=== PATIENT | female | born 1985 | race Caucasian/White ===

== ENCOUNTER 2021-09-21 19:30 | Inpatient (IN) ==
[2021-09-21] MEDS ORDERED: OXYTOCIN 30 UNITS/500 ML BAG IV PRN ×2 (20:25→20:28)
--- NOTE | 2021-09-21 20:36 | History & Physical Report ---
Date of Service September 21, 2021 Assessment & Plan (1) Supervision of normal intrauterine in primigravida: Plan: AROM occured during cervial balloon placement will start IV PCN G prophylaxis now will allow to ambulate after first dose of PCN G pitocin if needed for labor augmentation epidural analgesia if requested anticipate vaginal History of Present Illness Primary Care Provider: Margarita Cam MD Patient is a 36 yo white female EDC 09/16/21 who presents for IOL because of unfavorable cervix at term. otherwise uncomplicated. GBS positive, blood type O Positive. Allergies Allergy/AdvReac Type Severity Reaction Status Date / Time No Known Allergies Allergy Mild Verified 09/21/21 19:43 Home Medications Medication Instructions Recorded Confirmed Type fluticasone furoate 100 1 inh INHALATION DAILY 12/03/18 09/21/21 History mcg/actuation blister powder for inhalation (Arnuity Ellipta) prenat.vits,ben,[id number] 1 tab PO DAILY 01/29/21 09/21/21 History famotidine [Pepcid] 1 tab PO DAILY PRN 06/01/21 09/21/21 History omeprazole 20 mg capsule,delayed 20 mg PO DAILY 09/21/21 09/21/21 History release Patient History Medical History Sarcoidosis Family History (Updated 01/29/21 @ 14:23 by Sherley Mendez) Brother Sarcoidosis Mother Graves disease Social History Smoking Status: Former smoker Hx Alcohol Use: No Hx Substance Use: No Preferred Language: Syriac Communication Ability: Effective Printing Grey Cloth Tender Required: No Beliefs That Will Affect Care: None marital status: marital status details: Levar (33) [phone] Current Living Situation: Spouse Current Living Situation Comment: house with current occupational status: employed current occupation: business xm1 tank driver (identifier horse) Feels Safe at Home: Yes Safety Concerns: Feels Safe At This Time Assistive Devices: None Review of Systems All systems reviewed & are unremarkable except as noted in HPI & below Physical Exam Constitutional: WD/WN, vitals as above Respiratory: normal respiratory effort, lungs clear to auscultation Cardiovascular: RRR, no murmur, no edema Psychiatric: A+Ox3, euthymic affect Genitourinary: OB Exam Abdomen: + vertex, + estimated weight (7-8 pounds) and + regular contractions (mild every 5 -6 minutes) Manual OB Exam: + cervical dilation 1 cm, + cervical effacement 60% and + station -1 OB Exam Monitor Tracing: + external FHT monitor used, + external uterine monitor used, + category I and + normal FHT variability cervical balloon placed with stylet and in the process membranes ruptured for thin meconium stained fluid. Results & Data ([facility]) Vital Signs (Past 12 Hours) Vital Signs Temp Pulse Resp BP 09/21/21 20:26 97.9 F 09/21/21 19:46 97.9 F 18 09/21/21 19:40 97.9 F 73 18 123/73 Coding Level of Care Code None Diagnoses Supervision of normal intrauterine in primigravida Z34.00
[2021-09-21] MEDS ORDERED: PENICILLIN G POTASSIUM 6 MU in DEXTROSE 5% 250 ML IV ONE (20:45)
[2021-09-21 20:54] LABS: Hematocrit (blood only) 30.1 % (37-47); Hemoglobin 10.2 g/dL (12.0-16.0); Mean Corpuscular Hemoglobin 27.6 pg (25-34); Mean Corpuscular Hgb Conc 33.9 g/dL (32-36); Mean Corpuscular Volume 81.6 fL (80-100); Mean Platelet Volume 10.2 fL (7.4-10.4); Platelet Count 252 K/uL (130-400); RDW Coefficient of Variation 12.4 % (11.5-14.5); RDW Standard Deviation 36.9 fL (36.4-46.3); Red Blood Count 3.69 M/uL (4.2-5.4); White Blood Count 10.85 K/uL (4.8-10.8)
[2021-09-21] MEDS: LACTATED RINGER'S 1,000 ML IV PRN (20:56)
[2021-09-22] MEDS: PENICILLIN G POTASSIUM 3 MU in DEXTROSE 5% 100 ML IV PRN ×3 (00:41→08:58)
[2021-09-22] MEDS ORDERED: ePHEDrine sulfate 50 MG/ML AMP ONE (01:25)
[2021-09-22] MEDS ORDERED: BUPIVACAINE 0.25% 30 ML VIAL ONE (01:26)
[2021-09-22] MEDS ORDERED: fentaNYL 2MCG/ML ROPIVACAINE 1.25MG/ML 100 ML BAG EPI ONE (01:26)
[2021-09-22] MEDS ORDERED: SODIUM CHLORIDE 0.9% INJ 10 ML VIAL ONE (01:26)
[2021-09-22] MEDS ORDERED: fentaNYL citrate 100 MCG/2 ML VIAL ONE ×2 (01:26→11:41)
[2021-09-22] MEDS ORDERED: ONDANSETRON INJ 2 MG/ML 2 ML VIAL IV PRN (01:48)
[2021-09-22] MEDS ORDERED: NALOXONE HCL 1 MG in SODIUM CHLORIDE 0.9% 1000ML 1,000 ML IV PRN ×2 (01:48→11:12)
[2021-09-22] MEDS ORDERED: NALBUPHINE HCL INJ 10 MG/ML AMP IV PRN ×2 (01:48→11:12)
[2021-09-22] MEDS ORDERED: NALOXONE HCL 0.4 MG/1 ML VIAL/CARP IV PRN ×2 (01:48→11:12)
[2021-09-22] MEDS ORDERED: ePHEDrine sulfate 50 MG/ML AMP IV PRN ×2 (01:48→11:12)
[2021-09-22] MEDS ORDERED: diphenhydrAMINE 50 MG/ML VIAL IV PRN ×2 (01:48→11:12)
[2021-09-22] MEDS ORDERED: fentaNYL 2MCG/ML ROPIVACAINE 1.25MG/ML 100 ML BAG EPI PRN (01:48)
--- NOTE | 2021-09-22 01:49 | Anesthesiology Consultation ---
Date of Service September 22, 2021 Assessment & Plan (1) Encounter for pre-operative examination: Chart Review Chart Review: Patient NOT seen in Pre Admission Testing and Acceptable Risk for Labor Epidural Consults Requested none History Height/Weight Height: 5 ft 1 in Weight: 70.307 kg Allergies Allergy/AdvReac Type Severity Reaction Status Date / Time No Known Allergies Allergy Mild Verified 09/21/21 19:43 Medications Home Medications Medication Instructions Recorded Confirmed Last Taken fluticasone furoate 100 1 inh INHALATION DAILY 12/03/18 09/21/21 12/03/18 08:00 mcg/actuation blister powder for inhalation (Arnuity Ellipta) prenat.vits,ben,[id number] 1 tab PO DAILY 01/29/21 09/21/21 09/20/21 famotidine 20 mg tablet (Pepcid) 20 mg PO DAILY 09/21/21 09/21/21 Unknown omeprazole 20 mg capsule,delayed 20 mg PO DAILY 09/21/21 09/21/21 09/21/21 release Active Medications Generic Name Dose Route Start Last Admin Trade Name Freq PRN Reason Stop Dose Admin Lactated Ringer's 1,000 mls @ 125 mls/hr 09/21/21 20:25 09/22/21 01:20 Lr IV 09/23/21 20:24 999 mls/hr .Q8H PRN Infusion L&D Protocol Protocol Penicillin G Potassium 3 mu/ 106 mls @ 100 mls/hr 09/22/21 00:30 09/22/21 01:45 Dextrose IV 10/02/21 00:29 Infused Q4H PRN Infusion GBS(+) Until Delivery Past Medical History Medical History Sarcoidosis Exercise / Class Metabolic Activity II 4-5 Yardwork/Stairs/Walk up hill Past Family History Family History Brother Sarcoidosis Mother Graves disease Past Anesthesia History No Hx of Anesthesia Complications and No Family Hx of Anesthesia Complications History of PONV No Hx of PONV and No Hx of Motion Sickness Social History Smoking Status: Former smoker tobacco type: cigarettes Hx Alcohol Use: No Hx Substance Use: No Physical Exam Vital Signs Last Vital Signs Temp 36.6 C 09/22/21 01:46 Pulse 76 09/22/21 01:46 Resp 18 09/21/21 23:45 BP 118/71 09/22/21 01:46 Pulse Ox 99 09/22/21 01:46 Testing Laboratory Results 09/21/21 20:34
[2021-09-22] MEDS: LACTATED RINGER'S 1,000 ML IV PRN (02:21)
--- NOTE | 2021-09-22 08:41 | Labor Progress Brief Note ---
Date of Service September 22, 2021 Patient is to be induced today during her cervical Bates placement she had an artificial rupture membranes at that time she was admitted contractions began requested epidural and Pitocin was started in the morning she did start to have some repetitive late decelerations she was repositioned a fluid bolus was given Pitocin was stopped and oxygen given to the patient this stage we will monitor the patient is 3 cm however her station is high -3 discussed if we take a pause from Pitocin to restart and will see if the decelerations reappear we discussed the possibility of Assessment & Plan Admission and Anticipated Discharge Date Admission Date: September 21, 2021 Results & Data ([facility]) Vital Signs (Past 12 Hours) Vital Signs Temp Pulse Resp BP Pulse Ox 09/22/21 08:36 70 100 09/22/21 08:31 66 96 09/22/21 08:27 58 L 106/65 09/22/21 08:26 59 L 98 09/22/21 08:21 70 98 09/22/21 08:16 76 98 09/22/21 08:12 63 111/69 09/22/21 08:11 70 98 09/22/21 08:06 67 98 09/22/21 08:01 71 97 09/22/21 07:57 75 113/69 09/22/21 07:56 71 98 09/22/21 07:51 68 98 09/22/21 07:46 79 96 09/22/21 07:42 64 110/65 09/22/21 07:41 77 97 09/22/21 07:36 64 96 09/22/21 07:31 66 96 09/22/21 07:27 62 106/63 09/22/21 07:26 60 96 09/22/21 07:21 74 96 09/22/21 07:16 70 96 09/22/21 07:12 98.4 F 65 20 102/56 L 09/22/21 07:11 76 97 09/22/21 07:06 65 95 09/22/21 07:01 68 96 09/22/21 07:00 18 09/22/21 06:57 63 108/61 09/22/21 06:56 64 96 09/22/21 06:51 66 95 09/22/21 06:46 64 96 09/22/21 06:42 64 101/58 L 09/22/21 06:41 66 95 09/22/21 06:36 97.9 F 82 95 09/22/21 06:31 62 96 09/22/21 06:30 18 09/22/21 06:27 65 111/63 09/22/21 06:26 66 96 09/22/21 06:21 70 96 09/22/21 06:16 62 96 09/22/21 06:12 65 114/63 09/22/21 06:11 65 95 09/22/21 06:06 70 95 09/22/21 06:01 68 96 09/22/21 06:00 18 09/22/21 05:57 69 111/65 09/22/21 05:56 65 95 09/22/21 05:51 66 96 09/22/21 05:46 67 96 09/22/21 05:42 66 108/66 09/22/21 05:41 63 96 09/22/21 05:36 67 96 09/22/21 05:31 66 96 09/22/21 05:28 65 106/63 09/22/21 05:26 71 96 09/22/21 05:21 62 96 09/22/21 05:16 68 97 09/22/21 05:12 83 111/70 09/22/21 05:11 64 96 09/22/21 05:06 65 96 09/22/21 05:01 65 96 09/22/21 04:57 65 107/63 09/22/21 04:56 68 96 09/22/21 04:55 98.1 F 09/22/21 04:51 70 97 09/22/21 04:46 66 97 09/22/21 04:42 67 93/52 L 09/22/21 04:41 78 98 09/22/21 04:36 74 97 09/22/21 04:31 72 96 09/22/21 04:30 18 09/22/21 04:27 75 106/56 L 09/22/21 04:26 78 96 09/22/21 04:21 77 96 09/22/21 04:16 67 97 09/22/21 04:12 64 99/54 L 09/22/21 04:11 67 97 09/22/21 04:06 67 97 09/22/21 04:01 70 97 09/22/21 04:00 18 09/22/21 03:58 65 109/63 09/22/21 03:56 66 96 09/22/21 03:51 65 96 09/22/21 03:46 62 96 09/22/21 03:43 88 114/62 09/22/21 03:42 72 94 09/22/21 03:41 67 94 09/22/21 03:36 64 96 09/22/21 03:31 62 96 09/22/21 03:27 63 116/65 09/22/21 03:26 64 96 09/22/21 03:21 82 96 09/22/21 03:16 71 96 09/22/21 03:15 97.7 F 09/22/21 03:14 67 108/63 09/22/21 03:11 67 96 09/22/21 03:06 68 96 09/22/21 03:01 71 96 09/22/21 03:00 18 09/22/21 02:59 70 107/64 09/22/21 02:56 82 97 09/22/21 02:51 73 96 09/22/21 02:46 85 96 09/22/21 02:42 69 92/55 L 09/22/21 02:41 69 97 09/22/21 02:36 74 97 09/22/21 02:31 69 97 09/22/21 02:30 18 09/22/21 02:27 93 H 110/57 L 09/22/21 02:26 85 97 09/22/21 02:25 83 100/58 L 09/22/21 02:23 81 105/59 L 09/22/21 02:21 82 103/59 L 98 09/22/21 02:19 93 H 109/63 09/22/21 02:17 88 106/59 L 09/22/21 02:16 94 H 98 09/22/21 02:15 87 95/54 L 09/22/21 02:13 74 100/55 L 09/22/21 02:11 76 110/70 98 09/22/21 02:09 75 116/60 09/22/21 02:07 76 120/61 09/22/21 02:06 88 98 09/22/21 02:01 86 98 09/22/21 01:56 95 H 98 09/22/21 01:51 80 98 09/22/21 01:46 97.9 F 76 118/71 99 09/22/21 01:41 81 100 09/21/21 23:45 98.1 F 18 09/21/21 23:00 65 123/77 09/21/21 22:00 97.5 F L 18 09/21/21 21:30 18 09/21/21 21:00 18 Coding Level of Care Code None
[2021-09-22] MEDS ORDERED: PANTOprazole 40 MG TAB PO SCH (09:00)
[2021-09-22] MEDS ORDERED: FLUTICASONE FUROATE 100MCG 14 PUFFS/INHALER INH SCH (09:00)
--- NOTE | 2021-09-22 10:02 | Labor Progress Brief Note ---
Date of Service September 22, 2021 We have turned Pitocin off 2 times now due to recurrent late decelerations resuscitative measures have been initiated including oxygen and repositioning and fluid bolus and patient is still 3 cm -3 station I have discussed all my concerns about the lack of progress and still was reassuring status when contractions are more active. Some of the D cells are certainly timed with her fiona after the peak of the contraction and have a subtle waveform consistent with late decelerations the heart rate in the pill in between is reassuring and shows good variability I have discussed the possibility of restarting the Pitocin and also discussed the option of a section we discussed the risks involved of the section as well section. The patient was counseled to the nature of the procedure including alternatives such as labor. Risks were discussed including bleeding infection injury to bowel bladder ureter vessels and even baby. Deep Vein thrombosis, pulmonary embolus discussed. Breakdown of incision reviewed. Deep vein thrombosis pulmonary embolus hernia and failure of the incision to heal were discussed Patient verbalized understanding of this and was given ample time to ask questions Assessment & Plan Admission and Anticipated Discharge Date Admission Date: September 21, 2021 Results & Data ([facility]) Vital Signs (Past 12 Hours) Vital Signs Temp Pulse Resp BP Pulse Ox 09/22/21 09:58 93 H 135/74 09/22/21 09:56 96 H 97 09/22/21 09:51 76 98 09/22/21 09:46 73 97 09/22/21 09:42 67 114/72 09/22/21 09:41 69 98 09/22/21 09:36 67 99 09/22/21 09:31 69 99 09/22/21 09:27 67 122/73 09/22/21 09:26 71 99 09/22/21 09:21 62 98 09/22/21 09:16 64 99 09/22/21 09:13 65 128/72 09/22/21 09:11 69 98 09/22/21 09:06 73 98 09/22/21 09:01 67 100 09/22/21 08:57 62 117/66 09/22/21 08:56 64 100 09/22/21 08:51 66 100 09/22/21 08:46 66 100 09/22/21 08:43 64 115/73 09/22/21 08:41 69 100 09/22/21 08:36 70 100 03/23/22 08:31 66 96 09/22/21 08:27 58 L 106/65 09/22/21 08:26 59 L 98 09/22/21 08:21 70 98 09/22/21 08:16 76 98 09/22/21 08:12 63 111/69 09/22/21 08:11 70 98 09/22/21 08:06 67 98 09/22/21 08:01 71 97 09/22/21 07:57 75 113/69 09/22/21 07:56 71 98 09/22/21 07:51 68 98 09/22/21 07:46 79 96 09/22/21 07:42 64 110/65 09/22/21 07:41 77 97 09/22/21 07:36 64 96 09/22/21 07:31 66 96 09/22/21 07:27 62 106/63 09/22/21 07:26 60 96 09/22/21 07:21 74 96 09/22/21 07:16 70 96 09/22/21 07:12 98.4 F 65 20 102/56 L 09/22/21 07:11 76 97 09/22/21 07:06 65 95 09/22/21 07:01 68 96 09/22/21 07:00 18 09/22/21 06:57 63 108/61 09/22/21 06:56 64 96 09/22/21 06:51 66 95 09/22/21 06:46 64 96 09/22/21 06:42 64 101/58 L 09/22/21 06:41 66 95 09/22/21 06:36 97.9 F 82 95 09/22/21 06:31 62 96 09/22/21 06:30 18 09/22/21 06:27 65 111/63 09/22/21 06:26 66 96 09/22/21 06:21 70 96 09/22/21 06:16 62 96 09/22/21 06:12 65 114/63 09/22/21 06:11 65 95 09/22/21 06:06 70 95 09/22/21 06:01 68 96 09/22/21 06:00 18 09/22/21 05:57 69 111/65 09/22/21 05:56 65 95 09/22/21 05:51 66 96 09/22/21 05:46 67 96 09/22/21 05:42 66 108/66 09/22/21 05:41 63 96 09/22/21 05:36 67 96 09/22/21 05:31 66 96 09/22/21 05:28 65 106/63 09/22/21 05:26 71 96 09/22/21 05:21 62 96 09/22/21 05:16 68 97 09/22/21 05:12 83 111/70 09/22/21 05:11 64 96 09/22/21 05:06 65 96 09/22/21 05:01 65 96 09/22/21 04:57 65 107/63 09/22/21 04:56 68 96 09/22/21 04:55 98.1 F 09/22/21 04:51 70 97 09/22/21 04:46 66 97 09/22/21 04:42 67 93/52 L 09/22/21 04:41 78 98 09/22/21 04:36 74 97 09/22/21 04:31 72 96 09/22/21 04:30 18 09/22/21 04:27 75 106/56 L 09/22/21 04:26 78 96 09/22/21 04:21 77 96 09/22/21 04:16 67 97 09/22/21 04:12 64 99/54 L 09/22/21 04:11 67 97 09/22/21 04:06 67 97 09/22/21 04:01 70 97 09/22/21 04:00 18 09/22/21 03:58 65 109/63 09/22/21 03:56 66 96 09/22/21 03:51 65 96 09/22/21 03:46 62 96 09/22/21 03:43 88 114/62 09/22/21 03:42 72 94 09/22/21 03:41 67 94 09/22/21 03:36 64 96 09/22/21 03:31 62 96 09/22/21 03:27 63 116/65 09/22/21 03:26 64 96 09/22/21 03:21 82 96 09/22/21 03:16 71 96 09/22/21 03:15 97.7 F 09/22/21 03:14 67 108/63 09/22/21 03:11 67 96 09/22/21 03:06 68 96 09/22/21 03:01 71 96 09/22/21 03:00 18 09/22/21 02:59 70 107/64 09/22/21 02:56 82 97 09/22/21 02:51 73 96 09/22/21 02:46 85 96 09/22/21 02:42 69 92/55 L 09/22/21 02:41 69 97 09/22/21 02:36 74 97 09/22/21 02:31 69 97 09/22/21 02:30 18 09/22/21 02:27 93 H 110/57 L 09/22/21 02:26 85 97 09/22/21 02:25 83 100/58 L 09/22/21 02:23 81 105/59 L 09/22/21 02:21 82 103/59 L 98 09/22/21 02:19 93 H 109/63 09/22/21 02:17 88 106/59 L 09/22/21 02:16 94 H 98 09/22/21 02:15 87 95/54 L 09/22/21 02:13 74 100/55 L 09/22/21 02:11 76 110/70 98 09/22/21 02:09 75 116/60 09/22/21 02:07 76 120/61 09/22/21 02:06 88 98 09/22/21 02:01 86 98 09/22/21 01:56 95 H 98 09/22/21 01:51 80 98 09/22/21 01:46 97.9 F 76 118/71 99 09/22/21 01:41 81 100 09/21/21 23:45 98.1 F 18 09/21/21 23:00 65 123/77 Coding Level of Care Code None
[2021-09-22] MEDS ORDERED: LACTATED RINGER'S 1,000 ML IV SCH ×2 (10:45→13:35)
[2021-09-22] MEDS ORDERED: ceFAZolin 2000MG 2,000 MG/15 ML SYR IV SCH (11:00)
[2021-09-22] MEDS ORDERED: CITRIC ACID/SODIUM CITRATE 15 ML UDC PO SCH (11:00)
[2021-09-22] MEDS ORDERED: LACTATED RINGER'S 500 ML IV PRN (11:12)
[2021-09-22] MEDS ORDERED: MoRPHine SULFATE PF 1 MG/ML 10 ML AMP/VIAL EPI ONE (11:12)
[2021-09-22] MEDS ORDERED: KETOROLAC 30 MG/ML VIAL IV PRN (11:12)
[2021-09-22] MEDS ORDERED: HYDROmorphone INJ 0.5 MG/0.5 ML SYR IV PRN (11:12)
[2021-09-22] MEDS ORDERED: NALOXONE HCL 0.08 MG in SYRINGE 1.8 ML IV PRN (11:12)
[2021-09-22] MEDS ORDERED: SODIUM CHLORIDE 0.9% 1000ML 1,000 ML IV SCH (11:15)
[2021-09-22] MEDS ORDERED: NO NARCOTICS OR SEDATIVES SCH (11:15)
[2021-09-22] MEDS ORDERED: DC INTRASPINAL MORPHINE SCH (11:15)
[2021-09-22] MEDS ORDERED: MoRPHine SULFATE PF 1 MG/ML 10 ML AMP/VIAL ONE (11:41)
[2021-09-22] MEDS ORDERED: LIDOCAINE 2%/EPINEPHRINE 1:200,000 20 ML SDV ONE (11:42)
[2021-09-22] MEDS ORDERED: OXYTOCIN 10 UNITS/ML 10ML VIAL ONE ×2 (12:15→12:17)
[2021-09-22] MEDS ORDERED: PHENYLEPHRINE 100MCG/ML 5ML SYR ONE (12:15)
[2021-09-22] MEDS ORDERED: ONDANSETRON INJ 2 MG/ML 2 ML VIAL ONE (12:15)
--- NOTE | 2021-09-22 12:50 | Operative Report ---
PG Post Operative Report Pre & Post Diagnosis Operation Date: 09/22/21 12:00 <No data on this case meets the specified criteria> I identified the patient and participated in the time-out.: Yes Procedure Operation Date: 09/22/21 12:00 <No data on this case meets the specified criteria> Surgeon Cintia Amaro MD, FACOG [employer] Saw Tender . Estimated Blood Loss 500 Findings Consistent with Post-Op Diagnosis Specimens Cord gases cord blood Description of Procedure Regional anesthetic had been given by anesthesia patient was prepped and draped with a leftward tilt preoperative antibiotics had been given in appropriate timing by anesthesiology. Once the prep was allowed to fully dry timeout was performed. Pickups with teeth were used to test the incision area was found to be adequate for incision as the patient did not feel sharp pain. Scalpel was used to make a Pfannenstiel incision on the lower abdomen. We then cut through the subcutaneous fat down to the level of the anterior rectus sheath fascia this was cut in the midline and then extended laterally with the curved Felton scissors. At this stage we then placed 2 Osmin clamps on the anterior aspect of the fascia. Using the curved Felton's we are able to dissect the fascia superiorly away from the rectus muscles. Care was taken to maintain hemostasis. Osmin clamps were then placed to the inferior aspect of the anterior sheath of the fascia. Fascia was then dissected away from the rectus muscles inferiorly towards the pubic bone. A Osmin was then placed in the midline both inferiorly and superiorly. This was to allow exposure by retraction rectus muscles were in the midline with were then able to cut through the peritoneum and then enter the peritoneal cavity. Opening was enlarged to allow exposure of the peritoneal cavity both superiorly and inferiorly. Once adequate space was obtained a bladder retractor was placed to expose the lower segment Metzenbaums were used to dissect the bl adder flap inferiorly away from the uterus. This was done sharply bladder retractor was then repositioned to expose the lower segment of the uterus Fresh scalpel was used to make a low transverse incision on the uterus. Uterus was then entered bluntly with the operators finger, membranes ruptured and the opening was enlarged using the operators fingers bluntly pulling superiorly and inferiorly to allow exposure. Baby was delivered by first flexion of the head elevation of the head out of the pelvis and then pressure by the radiology assistant on the maternal abdomen. Baby's head was then delivered mouth and then nares were suctioned and then using gentle traction the baby was fully delivered. Live vigorous . Fluid was clear cord clamped and cut cord gases obtained cord blood obtained baby handed to pediatrics. Placenta removed was removed with traction we ensure the entire placenta was removed with a moist lap sponge, note tight nuchal cord that had to be clamped to deliver the head and there was thin meconium the was a male infant Infant's head was floating high in the pelvis and was nowhere near engaged at the time of Uterus was then exteriorized. IV Pitocin had been started by anesthesia tone improved there were no extensions the uterus was then closed using 0 Monocryl in a 2 layer closure the first layer closed in a running locked fashion from left to right and then a second closure from left to right in a running nonlocked fashion. At this stage hemostasis was excellent. Uterus was placed back in the peritoneal cavity with suction irrigation out and inspection of the uterus at this stage revealed excellent hemostasis Retractors were removed urine color was clear at this stage of the case we inspected the rectus muscles they were hemostatic fascia was closed with 0 Vicryl subcutaneous fat was irrigated and closed with 3-0 Vicryl skin closed with 4-0 subcuticular Monocryl I attest to the content of the Intraoperative Record and any orders documented therein. Any exceptions are noted below. OB Procedure Charges 03413
[2021-09-22] MEDS ORDERED: HYDROCORTISONE ACETATE 25 MG SUPP PR PRN (13:35)
[2021-09-22] MEDS ORDERED: MAGNESIUM HYDROXIDE SUSP 30 ML UDC PO PRN (13:35)
[2021-09-22] MEDS ORDERED: BENZOCAINE 20% AER SPR 82.5 GM CAN EXT PRN (13:35)
[2021-09-22] MEDS ORDERED: DIPHTHERIA/TETANUS/PERTUSSIS 0.5 ML SYR/VIAL IM ONE (13:35)
[2021-09-22] MEDS ORDERED: SENNA 8.6 MG TAB PO PRN (13:35)
--- NOTE | 2021-09-22 14:43 | Anesthesiology Progress Note ---
Date of Service September 22, 2021 Anesthesia Post Procedure Vital Signs Vital Signs: Temp Pulse Resp BP Pulse Ox 09/22/21 14:38 74 98 09/22/21 14:36 90 120/69 09/22/21 14:33 100 H 98 09/22/21 14:28 83 97 09/22/21 14:26 93 H 123/68 09/22/21 14:25 20 09/22/21 14:23 105 H 98 09/22/21 14:18 84 94 09/22/21 14:17 82 125/67 09/22/21 14:13 103 H 96 09/22/21 14:08 91 H 98 09/22/21 14:06 87 119/67 09/22/21 14:03 84 97 09/22/21 13:58 82 98 09/22/21 13:56 103 H 135/72 09/22/21 13:55 20 09/22/21 13:53 90 98 09/22/21 13:48 87 97 09/22/21 13:46 104 H 137/72 09/22/21 13:43 90 96 09/22/21 13:38 88 97 09/22/21 13:35 20 09/22/21 13:33 95 H 97 09/22/21 13:28 111 H 96 09/22/21 13:26 106 H 124/78 09/22/21 13:25 20 09/22/21 13:23 98 H 96 09/22/21 13:18 88 97 09/22/21 13:16 100 H 118/74 92 09/22/21 13:15 20 09/22/21 13:13 78 97 09/22/21 13:08 75 96 09/22/21 13:06 77 107/57 L 09/22/21 13:05 20 09/22/21 13:03 77 97 09/22/21 12:58 77 97 09/22/21 12:55 93 H 108/58 L 09/22/21 12:53 96 H 95 09/22/21 11:55 36.6 C 20 09/22/21 11:47 77 98 09/22/21 11:42 75 98 09/22/21 11:37 79 97 09/22/21 11:32 69 97 09/22/21 11:27 68 98 09/22/21 11:22 67 97 09/22/21 11:16 66 98 09/22/21 11:12 63 118/69 09/22/21 11:11 65 98 09/22/21 11:06 69 98 09/22/21 11:01 67 98 09/22/21 10:57 63 109/67 09/22/21 10:56 71 98 09/22/21 10:51 85 98 09/22/21 10:46 65 98 09/22/21 10:42 73 108/64 09/22/21 10:41 93 H 98 09/22/21 10:36 78 97 09/22/21 10:31 71 96 09/22/21 10:27 67 111/70 09/22/21 10:26 78 98 09/22/21 10:21 95 H 96 09/22/21 10:16 74 97 09/22/21 10:13 69 115/74 09/22/21 10:11 69 97 09/22/21 10:06 69 97 09/22/21 10:01 72 98 09/22/21 09:58 93 H 135/74 09/22/21 09:56 96 H 97 09/22/21 09:51 76 98 09/22/21 09:46 73 97 09/22/21 09:42 67 114/72 09/22/21 09:41 69 98 09/22/21 09:36 67 99 09/22/21 09:31 69 99 09/22/21 09:27 67 122/73 09/22/21 09:26 71 99 09/22/21 09:21 62 98 09/22/21 09:16 64 99 09/22/21 09:13 65 128/72 09/22/21 09:11 69 98 09/22/21 09:06 73 98 09/22/21 09:01 67 100 09/22/21 08:57 62 117/66 09/22/21 08:56 64 100 09/22/21 08:51 66 100 09/22/21 08:46 66 100 09/22/21 08:43 64 115/73 09/22/21 08:41 69 100 09/22/21 08:36 70 100 09/22/21 08:31 66 96 09/22/21 08:27 58 L 106/65 09/22/21 08:26 59 L 98 09/22/21 08:21 70 98 09/22/21 08:16 76 98 09/22/21 08:12 63 111/69 09/22/21 08:11 70 98 09/22/21 08:06 67 98 09/22/21 08:01 71 97 09/22/21 07:57 75 113/69 09/22/21 07:56 71 98 09/22/21 07:51 68 98 09/22/21 07:46 79 96 09/22/21 07:42 64 110/65 09/22/21 07:41 77 97 09/22/21 07:36 64 96 09/22/21 07:31 66 96 09/22/21 07:27 62 106/63 09/22/21 07:26 60 96 09/22/21 07:21 74 96 09/22/21 07:16 70 96 09/22/21 07:12 36.9 C 65 20 102/56 L 09/22/21 07:11 76 97 09/22/21 07:06 65 95 09/22/21 07:01 68 96 09/22/21 07:00 18 09/22/21 06:57 63 108/61 09/22/21 06:56 64 96 09/22/21 06:51 66 95 09/22/21 06:46 64 96 09/22/21 06:42 64 101/58 L 09/22/21 06:41 66 95 09/22/21 06:36 36.6 C 82 95 09/22/21 06:31 62 96 09/22/21 06:30 18 09/22/21 06:27 65 111/63 09/22/21 06:26 66 96 09/22/21 06:21 70 96 09/22/21 06:16 62 96 09/22/21 06:12 65 114/63 09/22/21 06:11 65 95 09/22/21 06:06 70 95 09/22/21 06:01 68 96 09/22/21 06:00 18 09/22/21 05:57 69 111/65 09/22/21 05:56 65 95 09/22/21 05:51 66 96 09/22/21 05:46 67 96 09/22/21 05:42 66 108/66 09/22/21 05:41 63 96 09/22/21 05:36 67 96 09/22/21 05:31 66 96 09/22/21 05:28 65 106/63 09/22/21 05:26 71 96 09/22/21 05:21 62 96 09/22/21 05:16 68 97 09/22/21 05:12 83 111/70 09/22/21 05:11 64 96 09/22/21 05:06 65 96 09/22/21 05:01 65 96 09/22/21 04:57 65 107/63 09/22/21 04:56 68 96 09/22/21 04:55 36.7 C 09/22/21 04:51 70 97 09/22/21 04:46 66 97 09/22/21 04:42 67 93/52 L 09/22/21 04:41 78 98 09/22/21 04:36 74 97 09/22/21 04:31 72 96 09/22/21 04:30 18 09/22/21 04:27 75 106/56 L 09/22/21 04:26 78 96 09/22/21 04:21 77 96 09/22/21 04:16 67 97 09/22/21 04:12 64 99/54 L 09/22/21 04:11 67 97 09/22/21 04:06 67 97 09/22/21 04:01 70 97 09/22/21 04:00 18 09/22/21 03:58 65 109/63 09/22/21 03:56 66 96 09/22/21 03:51 65 96 09/22/21 03:46 62 96 09/22/21 03:43 88 114/62 09/22/21 03:42 72 94 09/22/21 03:41 67 94 09/22/21 03:36 64 96 09/22/21 03:31 62 96 09/22/21 03:27 63 116/65 09/22/21 03:26 64 96 09/22/21 03:21 82 96 09/22/21 03:16 71 96 09/22/21 03:15 36.5 C 09/22/21 03:14 67 108/63 09/22/21 03:11 67 96 09/22/21 03:06 68 96 09/22/21 03:01 71 96 09/22/21 03:00 18 09/22/21 02:59 70 107/64 09/22/21 02:56 82 97 09/22/21 02:51 73 96 09/22/21 02:46 85 96 09/22/21 02:42 69 92/55 L 09/22/21 02:41 69 97 09/22/21 02:36 74 97 09/22/21 02:31 69 97 09/22/21 02:30 18 09/22/21 02:27 93 H 110/57 L 09/22/21 02:26 85 97 09/22/21 02:25 83 100/58 L 09/22/21 02:23 81 105/59 L 09/22/21 02:21 82 103/59 L 98 09/22/21 02:19 93 H 109/63 09/22/21 02:17 88 106/59 L 09/22/21 02:16 94 H 98 09/22/21 02:15 87 95/54 L 09/22/21 02:13 74 100/55 L 09/22/21 02:11 76 110/70 98 09/22/21 02:09 75 116/60 09/22/21 02:07 76 120/61 09/22/21 02:06 88 98 09/22/21 02:01 86 98 09/22/21 01:56 95 H 98 09/22/21 01:51 80 98 09/22/21 01:46 36.6 C 76 118/71 99 09/22/21 01:41 81 100 09/21/21 23:45 36.7 C 18 09/21/21 23:00 65 123/77 09/21/21 22:00 36.4 C L 18 09/21/21 21:30 18 09/21/21 21:00 18 09/21/21 20:30 18 09/21/21 20:26 36.6 C 09/21/21 19:46 36.6 C 18 09/21/21 19:40 36.6 C 73 18 123/73 Pain Intensity Lower Abdomen: Pain Intensity: 3 Transfer of Care Handoff Completed per policy Notes Mental Status: alert / awake / arousable Patient Amnestic to Procedure: Yes Nausea / Vomiting: adequately controlled Pain: adequately controlled Airway Patency, RR, SpO2: stable & adequate BP & HR: stable & adequate Hydration State: stable & adequate Neuraxial Anesthesia: was administered and sensory block is resolving Anesthetic Complications: no major complications apparent and Pt Satisfied with anesthetic care
[2021-09-22 15:33] LABS: Base Excess Cord Arterial Bld -2.7 mEq/L (-9-1.8); CO2 Cord Arterial Blood 56 mmHg (39.1-73.5); HCO3 Cord Arterial Blood 26 mmol/L (19.7-28.5); PO2 Cord Arterial Blood 14 mmHg (4.1-31.7); pH Cord Arterial Blood 7.28 (7.1-7.38)
[2021-09-22 15:36] LABS: Oxygen Sat Cord Arterial Blood < 60.0 % (<60)
[2021-09-22 15:37] LABS: Base Excess Cord Venous Blood -2.6 mEq/L (-7.7-1.9); Cord Venous Blood HCO3 24 mmol/L (18.4-26.8); Cord Venous Blood PCO2 45 mmHg (30.4-57.2); Cord Venous Blood PO2 25 mmHg (14.1-43.3); Cord Venous Blood pH 7.33 (7.20-7.44); O2 Saturation Cord Venous Bld < 60.0 % (<68)
[2021-09-22] MEDS: SIMETHICONE 80 MG CHEW PO SCH (17:24)
[2021-09-22] MEDS: OXYTOCIN 20 UNITS in LACTATED RINGER'S 1,000 ML IV SCH (17:40)
[2021-09-23] MEDS: OXYTOCIN 20 UNITS in LACTATED RINGER'S 1,000 ML IV SCH (02:14)
[2021-09-23] MEDS ORDERED: MEPERIDINE HCL 50 MG/ML CARP IV PRN (05:12)
[2021-09-23] MEDS ORDERED: ONDANSETRON INJ 2 MG/ML 2 ML VIAL IV PRN (05:12)
[2021-09-23] MEDS ORDERED: KETOROLAC 30 MG/ML VIAL IV PRN (05:12)
[2021-09-23] MEDS ORDERED: diphenhydrAMINE 50 MG/ML VIAL IV PRN (05:12)
[2021-09-23] MEDS ORDERED: PROMETHAZINE HCL 25 MG in SODIUM CHLORIDE 0.9% 50 ML IV PRN (05:12)
[2021-09-23] MEDS ORDERED: diphenhydrAMINE Capsule 25 MG CAP PO PRN (05:12)
[2021-09-23 06:25] LABS: Basophils # (auto) 0.04 K/uL (0-0.2); Basophils % (auto) 0.4 %; Eosinophils # (auto) 0.13 K/uL (0-0.5); Eosinophils % (auto) 1.3 %; Hematocrit (blood only) 26.7 % (37-47); Immature Granulocytes # (auto) 0.03 K/uL (0.00-0.02); Immature Granulocytes % (auto) 0.3 %; Lymphocytes # (auto) 1.23 K/uL (1.2-3.4); Lymphocytes % (auto) 11.9 %; Mean Corpuscular Hemoglobin 27.4 pg (25-34); Mean Corpuscular Hgb Conc 33.7 g/dL (32-36); Mean Corpuscular Volume 81.2 fL (80-100); Mean Platelet Volume 9.7 fL (7.4-10.4); Monocytes # (auto) 0.67 K/uL (0.11-0.59); Monocytes % (auto) 6.5 %; Neutrophils # (auto) 8.26 K/uL (1.4-6.5); Neutrophils % (auto) 79.6 %; Platelet Count 184 K/uL (130-400); RDW Coefficient of Variation 12.5 % (11.5-14.5); Red Blood Count 3.29 M/uL (4.2-5.4); White Blood Count 10.36 K/uL (4.8-10.8)
--- NOTE | 2021-09-23 07:10 | Obstetrical Progress Note ---
Date of Service September 23, 2021 Assessment & Plan (1) Encounter for pre-operative examination: POD #1 Ambulating, GERRY, no ext pain. Cont current care. O/E: Incision CDI Results & Data ([facility]) Vital Signs (Past 12 Hours) Vital Signs Temp Pulse Resp BP Pulse Ox 09/23/21 04:00 98.8 F 89 20 99 09/23/21 01:00 98.8 F 89 20 110/74 99 09/22/21 23:00 18 99 09/22/21 22:00 18 99 09/22/21 21:00 97.9 F 102 H 20 112/78 96 09/22/21 20:00 18 96
[2021-09-23] MEDS: PRENATAL VITAMIN 1 TAB PO SCH (08:11)
[2021-09-23] MEDS: SIMETHICONE 80 MG CHEW PO SCH ×4 (08:12→20:12)
[2021-09-23] MEDS: DOCUSATE SODIUM 100 MG CAP PO SCH ×2 (08:13→20:12)
[2021-09-23] MEDS: FERROUS SULFATE 325 MG TAB PO SCH (08:14)
[2021-09-23] MEDS ORDERED: FAMOTIDINE 20 MG TAB PO SCH (09:00)
[2021-09-23] MEDS ORDERED: NON-FORMULARY MEDICATION (Prenat.Vits,Cal,Min-Iron-Folic tablet) PO SCH (09:00)
[2021-09-23] MEDS: IBUPROFEN 600 MG TAB PO PRN ×3 (09:50→20:13)
[2021-09-23] MEDS: oxyCODONE/ACETAMINOPHEN 5mg/325mg TAB PO PRN ×3 (09:51→20:12)
[2021-09-23] MEDS ORDERED: bisacodyL 5 MG TABEC PO SCH (20:00)
[2021-09-24] MEDS: oxyCODONE/ACETAMINOPHEN 5mg/325mg TAB PO PRN ×4 (00:20→13:08)
[2021-09-24] MEDS: IBUPROFEN 600 MG TAB PO PRN ×4 (00:20→13:07)
[2021-09-24 07:10] LABS: Hematocrit (blood only) 27.6 % (37-47); Hemoglobin 9.1 g/dL (12.0-16.0)
--- NOTE | 2021-09-24 07:47 | Obstetrical Progress Note ---
Date of Service <Gucci Lamar MD - Last Filed: 09/24/21 07:46> September 24, 2021 Assessment & Plan <Gucci Lamar MD - Last Filed: 09/24/21 07:46> (1) Encounter for care and examination after delivery: POD 2: stable, routine postoperative management * patient voiding, ambulating without difficulty * pain well controlled on analgesia * tolerating regular diet * breast/bottle feeding * anticipate d/c today * 6-week OB outpatient follow-up <Nhan Abrams MD - Last Filed: 09/24/21 07:55> (1) Encounter for care and examination after delivery: Subjective <Gucci Lamar MD - Last Filed: 09/24/21 07:46> Post Pearl is a 36-year-old who is POD 2 following at 40.6 WGA. She reports feeling well overall this morning. Moderate cramping pain well managed on analgesics. Voiding well. Tolerating meals overnight and able to ambulate on her own. Bleeding is improved this morning. Currently . Review of Systems Denies fever, chills, sweats Denies shortness of breath, difficulty breathing, chest pain, palpitations, chest pressure. Denies breast pain. Denies dysuria. Denies headache or changes in vision. Physical Exam <Gucci Lamar MD - Last Filed: 09/24/21 07:46> General: Alert, oriented. No acute distress. Cardiac: Regular rate and rhythm, no murmurs/rubs/gallops. Respiratory: Clear to auscultation bilaterally a/p, no wheezes/rales/rhonchi. No increased work of breathing. Symmetrical chest rise. No respiratory distress. Abdomen: Soft, nontender, nondistended. Bowel sounds present. Uterus: Uterine fundus firm, palpable 1 cm below umbilicus. Surgical scar clean and healing well. Lower Extremities: No lower extremity edema or swelling. No deep calf pain. Silvia's negative bilaterally. Results & Data ([facility]) <Gucci Lamar MD - Last Filed: 09/24/21 07:46> Vital Signs (Past 12 Hours) Vital Signs Temp Pulse Resp BP Pulse Ox 09/23/21 23:45 36.6 C 86 18 98/59 L 96 09/23/21 19:45 36.8 C 80 18 137/81 97 <Nhan Abrams MD - Last Filed: 09/24/21 07:55> Co-Signing Physician Notes Patient seen and evaluated and agree with the above findings and plan. Stable for discharge Resident Activity Tracking <Gucci Lamar MD - Last Filed: 09/24/21 07:46> Resident Involvement: Resident Care Provided Care Provided: OB Delivery
[2021-09-24] MEDS: DOCUSATE SODIUM 100 MG CAP PO SCH (08:16)
[2021-09-24] MEDS: SIMETHICONE 80 MG CHEW PO SCH ×2 (08:16→13:08)
[2021-09-24] MEDS: PRENATAL VITAMIN 1 TAB PO SCH (08:16)
[2021-09-24] MEDS: FERROUS SULFATE 325 MG TAB PO SCH (08:18)
[2021-09-24] MEDS ORDERED: bisacodyL 10 MG SUPP PR PRN (12:46)
--- NOTE | 2021-09-27 07:10 | Discharge Summary ---
Date of Service September 27, 2021 Admission HPI Per Admitting Provider Patient is a 36 yo white female EDC 09/16/21 who presents for IOL because of unfavorable cervix at term. otherwise uncomplicated. GBS positive, blood type O Positive. Discharge Data Consultations 09/21/21 20:25 Consult Anesthesiology Stat Procedures Performed Operation Date: 09/22/21 12:00 Actual Procedures p Section in LD with result of live male child at 1217 - Feliberto. Bigg Amaro MD, [facility] Course (1) Encounter for care and examination after delivery: POD 2: stable, routine postoperative management * patient voiding, ambulating without difficulty * pain well controlled on analgesia * tolerating regular diet * breast/bottle feeding * anticipate d/c today * 6-week OB outpatient follow-up Coding Level of Care Code None Diagnoses Encounter for care and examination after delivery Z39.2
== END 2021-09-24 15:15 | disposition home or self-care (01) | DRG 788 ==
LOC: OPB 19:30 → 4S1 19:35 → 4E2 09-22 16:00
DX: Z3A.40 40 weeks gestation of pregnancy; O77.0 Labor and delivery complicated by meconium in amniotic fluid; Z79.51 Long term (current) use of inhaled steroids; O34.43 Maternal care for other abnormalities of cervix, third trimester; Z37.0 Single live birth; Z87.891 Personal history of nicotine dependence; Z79.899 Other long term (current) drug therapy; O99.824 Streptococcus B carrier state complicating childbirth; O76 Abnormality in fetal heart rate and rhythm complicating labor and delivery; O69.1XX0 Labor and delivery complicated by cord around neck, with compression, not applicable or unspecified